=== PATIENT | male | born 1960 ===

== ENCOUNTER → 2023-03-28 15:34 | Outpatient (BNVA) | payer MEDICARE, MEDICAID, SELFPAY | PROVIDERS: Family Provider Family Medicine; PCP Family Medicine; Referring Provider Family Medicine; Visit Provider Internal Medicine Pulmonary Disease | DX: R05.3 Chronic cough (principal); R06.02 Shortness of breath; J82.83 Eosinophilic asthma | CPT/HCPCS: 36415; 82785; 85025; 86003; 99204 ==

== ENCOUNTER 2023-04-17 13:22 | Outpatient (CLI) | payer MEDICARE, MEDICAID, SELFPAY ==
[2023-04-17 13:41] VITALS: PULSE 79; RESP 18; O2SAT 98
[2023-04-17] MEDS: albuterol 2.5 mg/3 mL Neb INHALATION (13:41)
[2023-04-17 13:45] VITALS: PULSE 86
== END 2023-04-17 13:23 | disposition home or self-care (01) ==
LOC: RT 13:23
PROVIDERS: Family Provider Family Medicine; PCP Family Medicine; Visit Provider Internal Medicine Pulmonary Disease
DX: J44.9 Chronic obstructive pulmonary disease, unspecified (principal); R94.2 Abnormal results of pulmonary function studies
CPT/HCPCS: 94060; 94726; 94729; J7613

== ENCOUNTER → 2023-05-31 09:10 | Outpatient (BNVA) | payer MEDICARE, MEDICAID, SELFPAY | PROVIDERS: Family Provider Family Medicine; PCP Family Medicine; Visit Provider Internal Medicine Pulmonary Disease | DX: R05.3 Chronic cough (principal); J82.83 Eosinophilic asthma | CPT/HCPCS: 99214 ==